=== PATIENT | female | born 1950 | race Caucasian/White ===

== ENCOUNTER 2016-12-13 14:53 | Inpatient (IN) | payer OTHER, MEDICARE ==
[~2016-12-13] VITALS: Ht 160 cm; Wt 84.9 kg
[2016-12-13 15:36] LABS: CHLORIDE 108 mEq/L (99-109); POTASSIUM 3.6 mEq/L (3.7-5.4); SODIUM 142 mEq/L (136-147)
[2016-12-13 15:39] LABS: GLUCOSE 110 mg/dL (70-99)
[2016-12-13 15:40] LABS: ANION GAP 7 MEQ/L (2-14)
[2016-12-13 15:41] LABS: TOTAL BILIRUBIN 0.6 mg/dL (0.0-1.0)
[2016-12-13 15:42] LABS: ALKALINE PHOSPHATASE 102 IU/L (3-129); GFR ESTIMATE (CALCULATED) > 59 mL/min/
[2016-12-13 15:43] LABS: UREA NITROGEN (BUN) 10 mg/dL (9-23)
[2016-12-13 15:48] LABS: TROP-I INTERPRETATION NEGATIVE; TROPONIN-I 0.02 ng/mL (0.0-0.30)
[2016-12-13 16:03] LABS: BASOPHIL COUNT 0.1 K/uL (0-0.1); EOSINOPHIL (%) 1.5 % (0-5); EOSINOPHIL COUNT 0.1 K/uL (0-0.3); HEMATOCRIT 40.4 % (36.0-46.0); IMMATURE GRANULOCYTE (%) 0.1 % (0.0-0.7); INSTRUMENT ABS NEUTROPHIL CT 4.9 K/uL; LYMPHOCYTE COUNT 1.5 K/uL (1.0-2.8); MCH 30.2 PG (29.0-34.0); MCHC 33.4 G/DL (30.0-36.0); MCV 90.4 FL (83-99); MEAN PLAT.VOLUME 10.4 uM^3 (9.5-12.4); MONOCYTE (%) 9.8 % (3-12); MONOCYTE COUNT 0.7 K/uL (0-0.8); NEUTROPHIL (%) 67.5 % (45-76); NEUTROPHIL COUNT 4.9 K/uL (1.8-6.4); PLATELET COUNT 240 K/uL (156-360); RBC DIS.WIDTH-CV 11.8 % (11.8-14.6); RBC DIS.WIDTH-SD 39.1 % (39-53); RED BLOOD COUNT 4.47 M/uL (3.80-5.20); WHITE BLOOD COUNT 7.3 K/uL (4.1-10.2)
[2016-12-13 17:48] LABS: TROP-I INTERPRETATION NEGATIVE; TROPONIN-I 0.11 ng/mL (0.0-0.30)
[2016-12-13 18:10] LABS: INTER. NORMALIZED RATIO 1.1; PROTHROMBIN TIME 11.8 SEC (10.2-12.9)
[2016-12-13] MEDS ORDERED: MELOXICAM7.5 MG PO (18:49)
[2016-12-13] MEDS ORDERED: ALLEGRA ALLERG180 MG PO (18:49)
[2016-12-13] MEDS ORDERED: TRAMADOL HCL50 MG PO (18:49)
[2016-12-13] MEDS ORDERED: SERTRALINE HCL50 MG PO (18:49)
[2016-12-13] MEDS ORDERED: CENTRUM SILVER1 EAC3 PO (18:49)
[2016-12-13] MEDS ORDERED: CRESTOR10 MG PO (18:49)
[2016-12-13] MEDS ORDERED: LOPRESSOR25 MG PO (18:49)
[2016-12-13] MEDS ORDERED: AMLODIPINE BES2.5 MG PO (18:49)
[2016-12-13] MEDS ORDERED: ACIDOPHILUS1 EAC3 PO (18:50)
[2016-12-13] MEDS ORDERED: PROAIR RESPICL90 MCG IH (18:50)
[2016-12-13 21:49] LABS: TROP-I INTERPRETATION NEGATIVE; TROPONIN-I 0.13 ng/mL (0.0-0.30)
[2016-12-13 22:01] VITALS: BP 159/79
[2016-12-14 03:22] VITALS: BP 153/67
[2016-12-14 05:50] LABS: HEMATOCRIT 37.4 % (36.0-46.0); MCH 31.5 PG (29.0-34.0); MCHC 33.7 G/DL (30.0-36.0); MCV 93.5 FL (83-99); MEAN PLAT.VOLUME 10.8 uM^3 (9.5-12.4); PLATELET COUNT 211 K/uL (156-360); RBC DIS.WIDTH-CV 12.1 % (11.8-14.6); RBC DIS.WIDTH-SD 41.7 % (39-53); WHITE BLOOD COUNT 6.5 K/uL (4.1-10.2)
[2016-12-14 06:13] LABS: ANION GAP 7 MEQ/L (2-14); CHLORIDE 107 MEQ/L (99-109); GFR ESTIMATE (CALCULATED) > 59 mL/min/; GLUCOSE 97 mg/dL (70-99); POTASSIUM 4.3 MEQ/L (3.7-5.4); SAMPLE HEMOLYSIS CHECK 0; SAMPLE ICTERIC CHECK 0; SAMPLE LIPEMIA CHECK 0; SODIUM 142 MEQ/L (136-147); UREA NITROGEN (BUN) 10 mg/dL (9-23)
[2016-12-14 06:19] LABS: TROP-I INTERPRETATION NEGATIVE; TROPONIN-I 0.05 ng/mL (0.0-0.30)
[2016-12-14 07:44] VITALS: BP 174/82
[2016-12-14 11:25] VITALS: BP 130/74
== END 2016-12-14 15:17 | disposition home or self-care (01) | DRG 313 ==
LOC: EME 14:53 → EDOF 20:52 → 4EAST 20:52 → ENRESERV 20:53 → 4EAST 21:48
PROVIDERS: Hospitalist; Physician Assistant Medical
DX: R07.89 Other chest pain (principal); I95.89 Other hypotension; R51 Headache; T46.3X5A Adverse effect of coronary vasodilators, initial encounter; I49.3 Ventricular premature depolarization; I10 Essential (primary) hypertension; M62.81 Muscle weakness (generalized); E78.00 Pure hypercholesterolemia, unspecified; E78.5 Hyperlipidemia, unspecified; Z82.49 Family history of ischemic heart disease and other diseases of the circulatory system; Z79.82 Long term (current) use of aspirin
CPT/HCPCS: 71010; 71260; 71275; 80048; 80053; 84484; 85025; 85027; 85379; 85610; 90686; 93005; 93306; 99281; 99284; J1650; S0028